=== PATIENT | female | born 1985 | race Caucasian/White ===

== ENCOUNTER 2018-03-21 15:34 | Inpatient (IN) | payer MEDICAID ==
[~2018-03-21] VITALS: Ht 160 cm; Wt 65.2 kg
[2018-03-21 16:23] LABS: BASOPHILS # (AUTO) 0.03 x10^3/uL (0-0.1); BASOPHILS % (AUTO) 1 % (0-1); EOSINOPHILS # (AUTO) 0.07 x10^3/uL (0-0.4); EOSINOPHILS % (AUTO) 1 % (1-7); LYMPHOCYTES # (AUTO) 1.89 x10^3/uL (1-3.4); LYMPHOCYTES % (AUTO) 38 % (22-44); MD NO; MEAN CORPUSCULAR HEMOGLOBIN 32.2 pg (27.0-34.8); MEAN CORPUSCULAR HGB CONC 33.6 g/dL (32.4-35.8); MEAN CORPUSCULAR VOLUME 95.7 fL (80-100); MEAN PLATELET VOLUME 9.5 fL (7.4-10.4); MONOCYTES # (AUTO) 0.54 x10^3/uL (0.2-0.8); MONOCYTES % (AUTO) 11 % (2-9); NEUTROPHILS # (AUTO) 2.43 x10^3/uL (1.8-6.8); NEUTROPHILS % (AUTO) 49 % (42-75); PLATELET COUNT 223 x10^3/uL (130-400); RED BLOOD COUNT 4.55 x10^6/uL (3.82-5.3); RED CELL DISTRIBUTION WIDTH 12.6 % (9.6-15.2)
[2018-03-21 16:35] LABS: ALANINE AMINOTRANSFERASE 30 U/L (12-78); ANION GAP 13 mmol/L (5-15); CALCIUM 8.6 mg/dL (8.5-10.1); CHLORIDE 106 mmol/L (98-107); CREATININE 0.59 mg/dL (0.55-1.02)
[2018-03-21 16:37] LABS: ALKALINE PHOSPHATASE 59 U/L (45-117); BILIRUBIN,TOTAL 0.6 mg/dL (0.2-1.0); TOTAL PROTEIN 7.9 g/dL (6.4-8.2)
[2018-03-21] MEDS ORDERED: POTASSIUM CHLORIDE 40 MEQ in SODIUM CHLORIDE 0.9% 1,000 ML IV ONE (16:56)
[2018-03-21] MEDS ORDERED: NS + 40MEQ KCL 1,000 ML IV ONE (17:01)
[2018-03-21] MEDS ORDERED: D5%-0.45NACL+KCL 20MEQ 1,000 ML IV SCH (17:18)
[2018-03-21] MEDS ORDERED: POTASSIUM CHLORIDE 40 MEQ in SODIUM CHLORIDE 0.9% 500 ML IV ONE (17:30)
[2018-03-21] MEDS ORDERED: LABETALOL 5MG/ML, 20ML IVPush PRN (17:30)
[2018-03-21] MEDS ORDERED: ONDANSETRON 2MG/ML, 2ML IVPush PRN (17:30)
[2018-03-21] MEDS ORDERED: ONDANSETRON ODT 4 MG PO PRN (17:30)
[2018-03-21] MEDS ORDERED: PANTOPRAZOLE 40 MG IV IVPush SCH (18:00)
[2018-03-21 18:02] LABS: FREE T4 (FREE THYROXINE) 1.09 ng/dL (0.76-1.46)
[2018-03-21 19:19] VITALS: BP 102/68
== END 2018-03-21 22:15 | disposition left against medical advice (07) | DRG 392 ==
LOC: ED 17:17 → EDIP 17:18 → ED 17:44 → 4WST 18:27
PROVIDERS: ADMIT Hospitalist; ATTEND Hospitalist
DX: R13.10 Dysphagia, unspecified (principal); E87.6 Hypokalemia; E86.0 Dehydration; E16.2 Hypoglycemia, unspecified; Z53.21 Procedure and treatment not carried out due to patient leaving prior to being seen by health care provider; Z98.84 Bariatric surgery status; Z87.891 Personal history of nicotine dependence
CPT/HCPCS: 36415; 71045; 80053; 83690; 83735; 84439; 84703; 85025; 96374; 96375; 99285; G0378; J3480; C9113; J7030

== ENCOUNTER 2018-03-21 22:35 | Inpatient (IN) | payer MEDICAID ==
[~2018-03-21] VITALS: Ht 160 cm; Wt 66.7 kg
[2018-03-21 23:20] LABS: ALBUMIN 3.6 g/dL (3.4-5.0); ANION GAP 10 mmol/L (5-15); CALCIUM 8.5 mg/dL (8.5-10.1); CHLORIDE 110 mmol/L (98-107); CREATININE 0.57 mg/dL (0.55-1.02)
[2018-03-22] MEDS ORDERED: hydrALAzine 20 MG/ML, 1ML IVPush PRN
[2018-03-22] MEDS ORDERED: HEPARIN 5,000 UNITS/ML, 1ML SQ SCH
[2018-03-22] MEDS ORDERED: NICOTINE 14MG/24 HR PATCH.TD24 TD ONE
[2018-03-22] MEDS ORDERED: NICOTINE 14MG/24 HR PATCH.TD24 ONE (00:20)
[2018-03-22] MEDS: NS + 20MEQ KCL 1,000 ML IV SCH ×2 (02:30→13:32)
[2018-03-22 02:45] VITALS: BP 93/61
[2018-03-22 05:26] LABS: ANION GAP 12 mmol/L (5-15); CHLORIDE 114 mmol/L (98-107); CREATININE 0.38 mg/dL (0.55-1.02)
[2018-03-22 05:39] LABS: BASOPHILS # (AUTO) 0.02 x10^3/uL (0-0.1); BASOPHILS % (AUTO) 0 % (0-1); EOSINOPHILS # (AUTO) 0.07 x10^3/uL (0-0.4); EOSINOPHILS % (AUTO) 2 % (1-7); LYMPHOCYTES # (AUTO) 2.29 x10^3/uL (1-3.4); LYMPHOCYTES % (AUTO) 51 % (22-44); MD NO; MEAN CORPUSCULAR HGB CONC 34.1 g/dL (32.4-35.8); MEAN CORPUSCULAR VOLUME 93.9 fL (80-100); MEAN PLATELET VOLUME 9.8 fL (7.4-10.4); MONOCYTES % (AUTO) 13 % (2-9); NEUTROPHILS % (AUTO) 34 % (42-75); PLATELET COUNT 171 x10^3/uL (130-400); RED BLOOD COUNT 3.92 x10^6/uL (3.82-5.3); RED CELL DISTRIBUTION WIDTH 12.5 % (9.6-15.2)
[2018-03-22 05:42] LABS: ALBUMIN 3.1 g/dL (3.4-5.0); ANION GAP 13 mmol/L (5-15); CALCIUM 7.8 mg/dL (8.5-10.1); CHLORIDE 113 mmol/L (98-107)
[2018-03-22 05:43] LABS: BASOPHILS # (AUTO) 0.02 x10^3/uL (0-0.1); BASOPHILS % (AUTO) 0 % (0-1); EOSINOPHILS # (AUTO) 0.05 x10^3/uL (0-0.4); EOSINOPHILS % (AUTO) 1 % (1-7); LYMPHOCYTES # (AUTO) 2.05 x10^3/uL (1-3.4); LYMPHOCYTES % (AUTO) 50 % (22-44); MD NO; MEAN CORPUSCULAR HGB CONC 34.5 g/dL (32.4-35.8); MEAN CORPUSCULAR VOLUME 95.4 fL (80-100); MEAN PLATELET VOLUME 9.8 fL (7.4-10.4); MONOCYTES # (AUTO) 0.51 x10^3/uL (0.2-0.8); MONOCYTES % (AUTO) 12 % (2-9); NEUTROPHILS # (AUTO) 1.48 x10^3/uL (1.8-6.8); NEUTROPHILS % (AUTO) 36 % (42-75); PLATELET COUNT 167 x10^3/uL (130-400); RED CELL DISTRIBUTION WIDTH 12.7 % (9.6-15.2)
[2018-03-22 07:13] VITALS: BP 91/60
[2018-03-22] MEDS ORDERED: PANTOPRAZOLE 40 MG IV IVPush SCH ×2 (07:30→21:00)
[2018-03-22 13:25] VITALS: BP 96/64
[2018-03-22] MEDS ORDERED: SUCRALFATE 1 GM/10 ML UDC PO SCH (18:00)
[2018-03-22] MEDS ORDERED: MAALOX/HYOSCYAMINE/LIDOCAINE 45 ML BTL PO ONE (18:00)
== END 2018-03-22 17:59 | disposition left against medical advice (07) | DRG 392 ==
LOC: ED 23:12 → EDIP 23:54 → 3NE 03-22 01:20
PROVIDERS: ADMIT Hospitalist; ATTEND Hospitalist
DX: R13.10 Dysphagia, unspecified (principal); Z98.84 Bariatric surgery status; F17.210 Nicotine dependence, cigarettes, uncomplicated; E87.6 Hypokalemia; E86.0 Dehydration; E16.2 Hypoglycemia, unspecified; R10.13 Epigastric pain; Z53.21 Procedure and treatment not carried out due to patient leaving prior to being seen by health care provider
CPT/HCPCS: 36415; 74241; 80048; 82040; 83735; 84100; 85025; 96365; 99285; J1644; J3480; C9113